=== PATIENT | male | born 1960 | race Caucasian/White ===

== ENCOUNTER 2017-12-06 13:15 | Emergency (ER) | payer OTHER ==
[2017-12-06 13:38] VITALS: BP 131/79
--- NOTE | 2017-12-06 14:05 | UC ---
Abdominal Pain Male HPI - HPI Summary HPI Summary: Pt c/o sudden onset of RUQ and RLQ p[ain that began this morning. Pt states he tried having a BM X 2 with success of BM on second try this morning. After BM pt states his abdominal pain was resolved. Pt had Ruen Y gastric bypass in january 2017. Pt states he has lost 200+ lbs since surgery. Pt states he did not eat a large meal in last 24 hours or today. Pt states he had "difficult time " with bowel movement - History of Current Complaint Chief Complaint: UCAbdominalPain Stated Complaint: ABDOMINAL RIGHT SIDE PAIN Time Seen by Provider: 12/06/17 13:31 Hx Obtained From: Patient Onset/Duration: Sudden Onset, Lasting Hours, Resolved Timing: Constant Severity Initially: Moderate Severity Currently: None Pain Intensity: 0 Location: Discrete At: RUQ, Discrete At: RLQ Radiates: No Character: Colicy, Cramping, Sharp Aggravating Factor(s): Nothing Alleviating Factor(s): Other - BM Associated Signs And Symptoms: Positive: Constipation - Risk Factors Testicular Torsion: Negative Cardiac Risk Factors: Negative - Allergies/Home Medications Allergies/Adverse Reactions: Allergies Allergy/AdvReac Type Severity Reaction Status Date / Time Penicillins Allergy Unknown Verified 12/06/17 13:31 Reaction Details Home Medications: Home Medications Blood Thinner DAILY 12/06/17 [History] Cholecalciferol TAB* [Vitamin D TAB*] 1,000 unit PO DAILY 12/06/17 [History Confirmed 12/06/17] Cyanocobalamin TAB* [Vitamin B12 TAB*] 500 mcg PO DAILY 12/06/17 [History Confirmed 12/06/17] Heartburn Medication DAILY 12/06/17 [History] Multivitamin [Multivitamins] 1 cap PO DAILY 12/06/17 [History Confirmed 12/06/17 ] Tamsulosin CAP* [Flomax CAP*] 0.4 mg PO DAILY 12/06/17 [History Confirmed ] PMH/Surg Hx/FS Hx/Imm Hx Previously Healthy: Yes GI/ History: Other - enlarged prostate Other GI/ History: enlarged prostate - Surgical History Surgical History: Yes Surgery Procedure, Year, and Place: dental surgery. left foot surgery/h/o fx. gastric bipass - Family History Known Family History: Positive: Cardiac Disease - Social History Occupation: Employed Full-time Lives: With Family Alcohol Use: Rare Substance Use Type: None Smoking Status (MU): Former Smoker Have You Smoked in the Last Year: No When Did the Patient Quit Smoking/Using Tobacco: 15 years Review of Systems Constitutional: Negative Skin: Negative Eyes: Negative ENT: Negative Respiratory: Negative Cardiovascular: Negative Gastrointestinal: Abdominal Pain Genitourinary: Negative Motor: Negative Neurovascular: Negative Musculoskeletal: Negative Neurological: Negative Psychological: Negative Is Patient Immunocompromised?: No All Other Systems Reviewed And Are Negative: Yes Physical Exam Triage Information Reviewed: Yes Appearance: Well-Appearing Vital Signs: Initial Vital Signs Temp 98.1 F 12/06/17 13:34 Pulse 67 12/06/17 13:34 Resp 23 12/06/17 13:34 BP 131/79 12/06/17 13:34 Pulse Ox 99 12/06/17 13:34 Vital Signs Reviewed: Yes Eye Exam: Normal ENT: Positive: Hearing grossly normal Dental Exam: Normal Neck exam: Normal Respiratory Exam: Normal Respiratory: Positive: No respiratory distress Cardiovascular Exam: Normal Abdominal Exam: Normal Abdomen Description: Positive: Nontender, Soft Bowel Sounds: Positive: Present Musculoskeletal Exam: Normal Neurological Exam: Normal Psychological Exam: Normal Skin Exam: Normal Abd Pain Male Course/Dx - Differential Dx/Clinical Impression Differential Diagnosis/HQI/PQRI: Constipation, Other Provider Diagnoses: abdominal pain. constipation Discharge - Sign-Out/Discharge Documenting (check all that apply): Patient Departure - Discharge Plan Condition: Stable Disposition: HOME Patient Education Materials: Acute Abdominal Pain (ED), Abdominal Pain (ED) Referrals: Mary Kay Bangura MD [Primary Care Provider] - If Needed - Billing Disposition and Condition Condition: STABLE Disposition: Home
== END 2017-12-06 14:14 | disposition home or self-care (01) ==
LOC: UCCORT 13:15
DX: K59.00 Constipation, unspecified (principal); Z88.0 Allergy status to penicillin; N40.0 Benign prostatic hyperplasia without lower urinary tract symptoms; Z87.891 Personal history of nicotine dependence
CPT/HCPCS: 99211; G0463

== ENCOUNTER 2018-02-17 07:44 | Emergency (ER) | payer OTHER ==
--- OUTSIDE RECORDS SUMMARY | 2018-02-17 07:53 | XMS REPORT ---
:1960 External Reference #:[id number] Author Organization [facility] Address [address], [address] [place] [address] Phone [phone] Care Team Providers Name Role Phone Oswald Kwok MD Care Team Information Flag Football Coach Unavailable Mary Kay Bangura MD Primary Care Physician Unavailable Payers Type Date Identification Numbers Payment Provider Subscriber Commercial Policy Number: [id number] Lifetime Benefit Solution Pavel Rodrigues Group Number: [id number] [address] [address] PayID: [place] [address] Problems Date Description Provider Status Onset: 01/09/2018 Chronic nonalcoholic liver Khris Iqbal DO Active disease Onset: 01/09/2018 Anemia Khris Iqbal DO Active Onset: 09/27/2017 Raised prostate specific antigen Edison Lee M.D. Active Onset: 09/14/2017 Morbid obesity Dallas Parker M.D., Active FACC Onset: 09/14/2017 Orthostatic hypotension Dallas Parker M.D., Active FACC Onset: 09/14/2017 Syncope and collapse Dallas Parker M.D., Active FACC Onset: 08/09/2017 Screening for malignant neoplasm Edison Lee M.D. Active of prostate Onset: 08/09/2017 Nocturia Edison Lee M.D. Active Onset: 07/12/2017 Benign prostatic hypertrophy with Edison Lee M.D. Active outflow obstruction Onset: 11/20/2010 Peripheral venous insufficiency Jerel Miles MD, KEANU Active Onset: 11/20/2010 Fracture therapy follow-up Jerel Miles MD, KEANU Active Onset: 11/20/2010 Pes planus Jerel Miles MD, KEANU Active Onset: 11/20/2010 Arthralgia of the ankle and/or Jerel Miles MD, KEANU Active foot Family History Date Family Member(s) Problem(s) Comments : (age 50 Years) Father due to [place] Father Heart Disease : (age 88 Years) Mother due to Unknown Causes Mother Unknown Social History Type Date Description Comments Marital Status Lives With Lives With Children Diet Patient follows no dietary Had gastric bypass in restrictions January 2017 Occupation Postal Delivery Officer Work Status Currently Working ADL's/IADL's Independent with all ADL's Cigarette Use Quit ETOH Use Rarely consumes alcohol Smoking Patient is a former smoker Recreational Drug Use Denies Drug Use Daily Caffeine Consumes on average 2 cups of regular coffee per day Allergies, Adverse Reactions, Alerts Date Description Reaction Status Severity Comments 11/05/2008 Penicillins unknown reaction active Medications Medication Date Status Form Strength Qnty SIG Indications Ordering Provider Cipro Hx Tablets 500mg 1tabs 1 tab by Shireen Lee - mouth once Edison in office [place] 018 for rprocedure Myrbetriq Active Tablets 25mg 30tabs 1 by mouth R35.1 Rosa 018 ER 24HR every day Olive Hogan Midodrine HCL Active Tablets 10mg 60tabs 1 tab by I95.1 Elena 018 mouth twice Dallas M., a day Olive, [facility] R55 Multi For Him Active Tablets 1 by mouth Unknown 50+ every day Omeprazole Active Capsules DR 20mg 1 by mouth Unknown every day Tamsulosin HCL Active Capsules 0.4m 1 by mouth Unknown g every day at bedtime Flintstones Active Chewtabs 2 tab by Unknown Gummies mouth every day Calcium Active Tablets 315- 1 by mouth Unknown Citrate-Vitamin 200m every day D g-Un it [id number] Active Chewtabs 1mg 1 tab by Unknown mouth every day wc Cipro 09/08/2017 Hx Tablets 500m 6tab 1 tab by Rosa, g s mouth twice a Mahmoud, day, start M.D. one day before procedure Miralax 09/08/2017 - Hx Packet 3350 1uni 1 teaspoon Rosa, 09/27/2017 NF ts twice daily Shardamoharrison, , 2 days M.D. prior to procedure Levaquin 07/14/2017 Hx Tablets 500m 7tab 1 tab by Rosa, g s mouth every Mahmoud, day M.D. Flomax 07/12/2017 - Hx Capsules 0.4m 90ca 1 by mouth Rosa, 09/06/2017 g ps every day Olive Hogan Hydrocodone/Apap Hx Tablets 5-50 1 tab po q4h Unknown 0mg prn Nexium - Hx Capsules DR 40mg 60ca 1 po qd Hal Guo 07/12/2017 ps MD David Metoprolol Hx Tablets 25mg 1 po bid Unknown Tartrate Metoprolol - Hx Tablets 25mg 2 tab by I95. Unknown Tartrate 08/01/2017 mouth twice 1 daily R55 Vital Signs Date Vital Result Comment 01/30/2018 BP Systolic 138 mmHg BP Diastolic 84 mmHg Body Temperature 98.5 F Heart Rate 63 /min Respiratory Rate 16 /min Weight 326.12 lb O2 % BldC Oximetry 97 % Pain Level 0 01/16/2018 BP Systolic 119 mmHg BP Diastolic 74 mmHg Body Temperature 97.0 F Heart Rate 61 /min Weight 332.38 lb O2 % BldC Oximetry 98 % Pain Level 0 01/09/2018 BP Systolic 109 mmHg BP Diastolic 63 mmHg Body Temperature 96.5 F Heart Rate 58 /min Weight 326.38 lb O2 % BldC Oximetry 97 % Pain Level 0 12/08/2017 BP Systolic 148 mmHg BP Diastolic 93 mmHg Body Temperature 97.3 F Heart Rate 59 /min Respiratory Rate 17 /min Height 79 inches 6'7" [place] body weight in kilograms 100 O2 % BldC Oximetry 96 % Pain Level 0 10/04/2017 BP Systolic 111 mmHg BP Diastolic 70 mmHg Body Temperature 98.7 F Heart Rate 68 /min Respiratory Rate 18 /min O2 % BldC Oximetry 94 % Pain Level 0 09/27/2017 BP Systolic 131 mmHg BP Diastolic 88 mmHg Heart Rate 73 /min Respiratory Rate 18 /min 09/27/2017 BP Systolic 147 mmHg BP Diastolic 88 mmHg Body Temperature 98.6 F Heart Rate 67 /min Respiratory Rate 18 /min Height 79 inches 6'7" Weight 340.00 lb BMI (Body Mass Index) 38.3 kg/m2 BSA (Body Surface Area) 2.86 m2 [place] body weight in kilograms 100 O2 % BldC Oximetry 96 % Pain Level 0 09/14/2017 BP Systolic Sitting Left Arm 115 mmHg BP Diastolic Sitting Left Arm 68 mmHg Heart Rate 76 /min Respiratory Rate 16 /min Height 79 inches 6'7" Weight 342.00 lb BMI (Body Mass Index) 38.5 kg/m2 BSA (Body Surface Area) 2.86 m2 [place] body weight in kilograms 100 09/06/2017 BP Systolic 120 mmHg BP Diastolic 78 mmHg Body Temperature 98.6 F Heart Rate 64 /min Respiratory Rate 18 /min Height 79 inches 6'7" Weight 340.00 lb BMI (Body Mass Index) 38.3 kg/m2 BSA (Body Surface Area) 2.86 m2 [place] body weight in kilograms 100 O2 % BldC Oximetry 97 % Pain Level 0 08/09/2017 BP Systolic 145 mmHg BP Diastolic 85 mmHg Body Temperature 98.2 F Heart Rate 74 /min Respiratory Rate 16 /min Height 79 inches 6'7" Weight 351.38 lb BMI (Body Mass Index) 39.6 kg/m2 BSA (Body Surface Area) 2.90 m2 [place] body weight in kilograms 100 O2 % BldC Oximetry 94 % Pain Level 1 Feels like he is not emptying 08/01/2017 BP Systolic Sitting Left Arm 102 mmHg Standing 88/58 BP Diastolic Sitting Left Arm 68 mmHg Standing 88/58 Heart Rate 72 /min Respiratory Rate 16 /min Height 79 inches 6'7" Weight 350.00 lb 330 per pt, has work boots on BMI (Body Mass Index) 39.4 kg/m2 BSA (Body Surface Area) 2.89 m2 [place] body weight in kilograms 100 07/12/2017 BP Systolic 130 mmHg BP Diastolic 85 mmHg Body Temperature 98.6 F Heart Rate 79 /min Respiratory Rate 16 /min Height 79 inches 6'7" Weight 349.38 lb BMI (Body Mass Index) 39.4 kg/m2 BSA (Body Surface Area) 2.89 m2 [place] body weight in kilograms 100 O2 % BldC Oximetry 95 % Pain Level 8 unable to urinate just dribbles 02/22/2011 Height 79 inches 6'7" Weight 373.00 lb BMI (Body Mass Index) 42.0 kg/m2 06/16/2009 Body Temperature 98.2 F Heart Rate 73 /min Respiratory Rate 20 /min Height 79 inches 6'7" Weight 315.00 lb BMI (Body Mass Index) 35.5 kg/m2 11/07/2008 Height 79 inches 6'7" Weight 330.00 lb BMI (Body Mass Index) 37.2 kg/m2 11/05/2008 Height 72 inches 6'0" Results Test Date Test Result H/L Range Note CBC W/Automated Diff 01/09/2018 White Blood Count 6.3 K/uL 3.4-10.5 1 Red Blood Count 4.64 M/uL 4.20-5.80 1 Hemoglobin 13.6 gm/dL 12.8-17.0 1 Hematocrit 40.0 % 38.0-48.0 1 Mean Cell Volume 86.2 fl 80.0-96.0 1 Mean Corpuscular HGB 29.3 pg 27.0-33.0 1 Mean Corpuscular HGB Conc 34.0 g/dL 31.7-36.0 1 Platelet Count 157 K/uL 155-360 1 Red Cell Distri Width SD 41.4 fl 36-51 1 Red Cell Distri Width %CV 13.5 % 11.6-15.8 1 Mean Platelet Volume 11.8 fL High 6.6-10.6 1 Neut% 62.5 % 33.0-73.0 1 Lymph % 28.1 % 20.0-42.0 1 [place] % 7.5 % 0.0-10.0 1 Eo% 1.6 % 0.0-6.6 1 Bas% 0.3 % 0.0-1.1 1 Neut# 3.93 K/uL 1.8-7.0 1 Lymph # 1.77 K/uL 1.0-4.0 1 [place] # 0.47 K/uL 0.0-0.8 1 Eos # 0.10 K/uL 0.0-0.5 1 Baso # 0.02 K/uL 0.0-0.1 1 Comprehensive Metabolic Panel 01/09/2018 Glucose 120 mg/dL High 74-106 1 BUN 21 mg/dL High 7-18 1 Creatinine 0.8 mg/dL 0.6-1.3 1 Glom Filtration Rate, Estimate >60 mL/min >60 1 If >60 mL/min >60 1, 2 BUN/Creat 26.2 ratio 1 Sodium 141 mmol/L 136-145 1 Potassium 4.1 mmol/L 3.5-5.1 1 Chloride 106 mmol/L 98-107 1 Carbon Dioxide 29 mmol/L 21-32 1 Anion Gap 6 mEq/L Low 8-16 1 Calcium 9.1 mg/dL 8.5-10.1 1 Total Protein 7.4 g/dL 6.4-8.2 1 Albumin 3.8 g/dL 3.4-5.0 1 Globulin 3.6 g/dL 1.9-4.3 1 Alb/Glob 1.1 ratio 1 Bilirubin,Total 0.6 mg/dL 0.2-1.0 1 Sgot/Ast 17 U/L 15-37 1 SGPT/Alt 22 U/L 12-78 1 Alkaline Phosphatase 93 U/L 45-117 1 Laboratory test finding 01/09/2018 Ferritin 494 ng/mL High 26-388 1 Vitamin B12 And Folate 01/09/2018 Vitamin B12 768 pg/mL 193-986 1 Folic Acid 13.3 ng/mL 3.1-17.5 1 Iron-Tibc-%Sat 01/09/2018 Serum Iron 105 g/dL 65-175 1 Total Iron Binding Capacity 288 g/dL 250-450 1 Transferrin %Saturation 36 % 12-57 1 Laboratory test finding 09/06/2017 Prostate Specific 10.60 ng/mL < 4.0 3 , 4 Antigen Laboratory test finding 08/09/2017 Prostate Specific 7.22 ng/mL < 4.0 5 , 6 Antigen Ua RFX Micro & Culture II 08/09/2017 Urine Color YELLOW Yellow 5 Urine Clarity CLEAR Clear 5 Urine Glucose - Dipstick NEGATIVE mg/dL Negative 5 Urine Bilirubin - Dipstick NEGATIVE Negative 5 Urine Ketone NEGATIVE mg/dL Negative 5 Urine Specific [place] <=1.005 Low 1.010-1.030 5 Urine Blood NEGATIVE Negative 5 Urine PH 6.0 Low 6.5-7.5 5 Urine Protein - Dipstick NEGATIVE mg/dL Negative 5 Urine Urobilinogen - Dipstick 0.2 E.U./dL 0.2-1.0 5 Urine Nitrite - Dipstick NEGATIVE Negative 5 Urine Leuk Esterase NEGATIVE Negative 5 Source: URINE, CLEAN CAT <SEE NOTE> 5, 7 Laboratory test finding 07/18/2017 Troponin-I < 0.015 ng/mL 8, 9 CBS W/Automated Diff 07/18/2017 White Blood Count 7.3 K/uL 3.4-10.5 8 Red Blood Count 4.64 M/uL 4.20-5.80 8 Hemoglobin 13.1 gm/dL 12.8-17.0 8 Hematocrit 39.6 % 38.0-48.0 8 Mean Cell Volume 85.3 fl 80.0-96.0 8 Mean Corpuscular HGB 28.2 pg 27.0-33.0 8 Mean Corpuscular HGB Conc 33.1 g/dL 31.7-36.0 8 Platelet Count 165 K/uL 155-360 8 Red Cell Distri Width SD 42.1 fl 36-51 8 Red Cell Distri Width %CV 13.9 % 11.6-15.8 8 Mean Platelet Volume 10.6 fL 6.6-10.6 8 Neut% 72.9 % 33.0-73.0 8 Lymph % 19.6 % Low 20.0-42.0 8 [place] % 6.1 % 0.0-10.0 8 Eo% 1.0 % 0.0-6.6 8 Bas% 0.4 % 0.0-1.1 8 Neut# 5.29 K/uL 1.8-7.0 8 Lymph # 1.42 K/uL 1.0-4.0 8 [place] # 0.44 K/uL 0.0-0.8 8 Eos # 0.07 K/uL 0.0-0.5 8 Baso # 0.03 K/uL 0.0-0.1 8 Basic Metabolic Panel 07/18/2017 Glucose 165 mg/dL High 74-106 8 BUN 14 mg/dL 7-18 8 Creatinine 1.0 mg/dL 0.6-1.3 8 Glom Filtration Rate, Estimate >60 mL/min >60 8 If >60 mL/min >60 8, 10 BUN/Creat 14.0 ratio 8 Sodium 140 mmol/L 136-145 8 Potassium 3.9 mmol/L 3.5-5.1 8 Chloride 103 mmol/L 98-107 8 Carbon Dioxide 28 mmol/L 21-32 8 Anion Gap 9 mEq/L 8-16 8 Calcium 9.0 mg/dL 8.5-10.1 8 Laboratory test finding 07/18/2017 Troponin-I < 0.015 ng/mL 8, 11 Blood Culture 07/17/2017 Blood Culture Aerobic NO GROWTH: FINAL 8, 12 <SEE NOTE> Blood Culture Anaerobic NO GROWTH: FINAL <SEE NOTE> 8, 13 Blood Culture 07/17/2017 Blood Culture Aerobic NO GROWTH: FINAL <SEE NOTE> 8, 14 Blood Culture Anaerobic NO GROWTH: FINAL <SEE NOTE> 8, 15 Aot Request 07/17/2017 Aot Request Test(s) added 8, 16 Tests to be added: pro bnp 8 Ua RFX Micro & Culture II 07/17/2017 Urine Color STRAW Yellow 8 Urine Clarity CLEAR Clear 8 Urine Glucose - Dipstick NEGATIVE mg/dL Negative 8 Urine Bilirubin - Dipstick NEGATIVE Negative 8 Urine Ketone NEGATIVE mg/dL Negative 8 Urine Specific [place] <=1.005 Low 1.010-1.030 8 Urine Blood NEGATIVE Negative 8 Urine PH 6.0 Low 6.5-7.5 8 Urine Protein - Dipstick NEGATIVE mg/dL Negative 8 Urine Urobilinogen - Dipstick 0.2 E.U./dL 0.2-1.0 8 Urine Nitrite - Dipstick NEGATIVE Negative 8 Urine Leuk Esterase NEGATIVE Negative 8 Source: URINE, CLEAN CAT <SEE NOTE> 8, 17 Ua RFX Micro & Culture II 07/12/2017 Urine Color YELLOW Yellow Urine Clarity CLOUDY Clear Urine Glucose - Dipstick NEGATIVE mg/dL Negative Urine Bilirubin - Dipstick NEGATIVE Negative Urine Ketone NEGATIVE mg/dL Negative Urine Specific [place] 1.025 1.010-1.030 Urine Blood NEGATIVE Negative Urine PH 5.5 Low 6.5-7.5 Urine Protein - Dipstick TRACE mg/dL Negative Urine Urobilinogen - Dipstick 0.2 E.U./dL 0.2-1.0 Urine Nitrite - Dipstick POSITIVE Negative Urine Leuk Esterase NEGATIVE Negative Urine RBC 2-5 rbc/hpf 0-2 Urine WBC 20-30 wbc/hpf High 0-7 Urine Epithelial Cells FEW /lpf None Seen Urine Calcium Oxalate Crystals MANY None Seen Urine Bacteria MODERATE None Seen Culture If Indicated 07/12/2017 Culture If Indicated CULTURE TO FOLLO <SEE 18 Comment Comment NOTE> Urine Culture 07/12/2017 Urine Culture KLEBSIELLA PNEUM <SEE 19 NOTE> Quantity > 100,000 CFU/mL 20 Ast-GN67 07/12/2017 Nitrofurantoin 64 Trimethoprim/Sulfamethoxazole <=20 Ampicillin >=32 Cefazolin <=4 Ampicillin/Sulbactam 8 Ciprofloxacin <=0.25 Piperacillin/Tazobactam <=4 Ceftazidime <=1 Ceftriaxone <=1 Cefepime <=1 Levofloxacin <=0.12 Imipenem <=0.25 Gentamicin <=1 Tobramycin <=1 Laboratory test finding 06/16/2009 Cyst, Cutaneous See Note 21 1 D64.9 2 Note: Persistent reduction for 3 months or more in an eGFR <60 mL/min/1.73 m2 defines CKD. Patients with eGFR values >/=60 mL/min/1.73 m2 may also have CKD if evidence of persistent proteinuria is present. The original MDRD equation for estimated GFR is not valid for patients less than 18 years of age. Additional information may be found at www.kdoqi.org. 3 R97.20 4 THIS ASSAY IS NOT INTENDED A CANCER SCREENING TEST The concentration of PSA in a given specimen, determined with assays from different manufacturers, can vary due to differences in assay methods and reagent specificity. Values obtained from different assay methods cannot be used interchangeably. Method: [employer] [place] Chemiluminescent immunoassay. 5 Z12.5 R35.1 6 THIS ASSAY IS NOT INTENDED A CANCER SCREENING TEST The concentration of PSA in a given specimen, determined with assays from different manufacturers, can vary due to differences in assay methods and reagent specificity. Values obtained from different assay methods cannot be used interchangeably. Method: [employer] [place] Chemiluminescent immunoassay. 7 URINE, CLEAN CATCH 8 SYNCOPE 9 0.0 - 0.045 ng/mL: Normal 0.046 - 0.5 ng/mL: Suggestive 0.6 - 1.5 ng/mL: Consistent 10 Note: Persistent reduction for 3 months or more in an eGFR <60 mL/min/1.73 m2 defines CKD. Patients with eGFR values >/=60 mL/min/1.73 m2 may also have CKD if evidence of persistent proteinuria is present. The original MDRD equation for estimated GFR is not valid for patients less than 18 years of age. Additional information may be found at www.kdoqi.org. 11 0.0 - 0.045 ng/mL: Normal 0.046 - 0.5 ng/mL: Suggestive 0.6 - 1.5 ng/mL: Consistent 12 NO GROWTH: FINAL REPORT 13 NO GROWTH: FINAL REPORT 14 NO GROWTH: FINAL REPORT 15 NO GROWTH: FINAL REPORT 16 Tests: pro bnp Instructions: 17 URINE, CLEAN CATCH 18 CULTURE TO FOLLOW 19 KLEBSIELLA PNEUMONIAE 20 > 100,000 CFU/mL 21 OPERATION/PROCEDURE Excision DIAGNOSIS: "NECK CYST": EPIDERMOID INCLUSION CYST. WYS/clf GROSS The specimen is received in a single container additionally labeled, "NECK CYST". This contains a largely intact spherical yellow-white growth measuring 2.9 x 2.9 x 2.5 cm. in overall dimensions. The unilocular cyst is filled with cheesy white curd- like central material. I do not see any papillations or central growths. This is submitted in claim representative section within a single cassette. Tissue remaining. WS/clf MICROSCOPIC Sections show a thin walled cystic structure lined by squamous epithelium with a granular layer and central keratinous debris. PRE OPERATIVE DIAGNOSIS Neck cyst REVIEW CODE CODE: I ALLEGRA López MD 06/18/09 Procedures Date CPT Code Description Status 01/30/2018 84465 Cystoscopy Completed 12/08/2017 38651 Measurement Post Voiding Residual Urine By Completed Ultrasound,Non-Imaging 12/08/2017 47305 complex uroflowmetry electronic Completed 09/27/2017 29475 Ultrasound Guide For Needle Biopsy Completed 09/27/2017 34117 Ultrasound Transrectal Completed 09/27/2017 72674 Biopsy Prostate Needle Or Punch Completed 09/27/2017 27096 Measurement Post Voiding Residual Urine By Completed Ultrasound,Non-Imaging 08/09/2017 71070 Measurement Post Voiding Residual Urine By Completed Ultrasound,Non-Imaging 08/09/2017 93160 complex uroflowmetry electronic Completed 08/01/2017 69111 EKG-Tracing And Report Completed 07/18/2017 71329 Echocardiogram Complete Completed 07/12/2017 22094 Measurement Post Voiding Residual Urine By Completed Ultrasound,Non-Imaging 08/06/2013 75959 Myocardial Imaging Tomographic Multiple Study AT Rest Completed Or Stress 08/06/2013 78746 Stress Test Physician Super Only Completed 08/06/2013 05924 Stress Test Physician Super Only Completed 08/06/2013 41737 Stress Test Interpre And Report Only Completed 11/20/2010 74593 Radiology, Foot, Complete-3 Views Completed 11/06/2009 33617 Radiology, Heel 2 Views Completed 06/16/2009 67269 Exc.Tumor Soft Tiss Neck Or Thyro Completed 03/27/2009 34475 Radiology, Foot, Complete-3 Views Completed 01/30/2009 90898 Radiology, Heel 2 Views Completed 01/02/2009 89005 Radiology, Foot, Complete-3 Views Completed 12/05/2008 03944 Radiology, Foot, Complete-3 Views Completed 11/07/2008 08342 FX Metatarsal-Closed W/O Completed Encounters Type Date Location Provider CPT E/M Dx Office Visit 01/30/2018 8:45a Urology Edison Lee M.D. 86204 N40.1 Office Visit 01/16/2018 8:45a [place] [address] D64.9 K76.0 Office Visit 01/09/2018 10:00a [place] [address] D64.9 N40.1 K76.0 Office Visit 12/08/2017 9:00a Urology Edison Lee M.D. 74017 N40.1 R97.20 R35.1 Office Visit 10/04/2017 10:15a Urology Edison Lee M.D. 60200 N40.1 R97.20 R35.1 Office Visit 09/14/2017 1:40p Cardiology Office Dallas Parker M.D., 78222 R55 [facility] I95.1 E66.01 Office Visit 09/06/2017 9:30a Urology Edison Lee M.D. 73071 N40.1 R35.1 Z12.5 Office Visit 08/09/2017 9:30a Urology Edison Lee M.D. 23411 N40.1 R35.1 Z12.5 Office Visit 08/01/2017 2:20p [place] [address] R55 I95.1 E66.01 Office Visit 07/12/2017 11:00a Urology Edison Lee M.D. 74182 N40.1 Office Visit 02/22/2011 9:30a [place], [address] 734 FACS 459.81 Office Visit 11/20/2010 9:15a [place], [address] 719.47 FACS 734 V67.4 459.81 Office Visit 11/06/2009 1:15p [place], [address] 719.7 FACS V67.4 Office Visit 06/16/2009 8:30a [place] [address] 706.2 Office Visit 03/27/2009 3:00p [place] [address] V67.4 Plan of Care Future Appointment(s):03/01/2018 10:00 am - Edison Lee M.D. at Operating Room07/10/2018 8:30 am - Oncology Nurse at Oncology Toeocn9907/17/2018 8:30 am - Khris Iqbal DO at Oncology [id number]/12/2018 8:30 am - Edison Lee M.D. at Byucsfo60/08/2018 - Edison Lee M.D.N40.1 Benign prostatic hyperplasia with lower urinary tract sympComments:Patient with BPH and prostate about 50 g. Discuss options including prostate thermotherapy in the office or the more aggressive and invasive TURP. Patient would like to have a TURP. Discussed with the patient the risks of retrograde ejaculation urinary incontinence and the need for catheter for several days. Patient is agreeable to proceed.
--- NOTE | 2018-02-17 08:33 | UC ---
Dizzy HPI HPI Summary: The patient is a 57-year-old male who person's for evaluation of a spell he had this morning while driving. 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 He was driving and had the acute onset of blurred vision. [place] like things were coning down. [place] as though he might pass out. His fingers became numb and tingly. He pulled off the road. After 5 or 6 minutes he felt markedly improved and came here. He denies any headache. Denies any chest pain, shortness of breath, or palpitations. He ate a piece of toast about 4:30 this morning. He states that about 6 months ago he had a syncopal episode. He had a UTI and apparently developed hypotension and fell. He broke 3 ribs And was hospitalized. He currently feels back to normal except for some mild tingling of his fingertips. - History Of Current Complaint Chief Complaint: UCGeneralIllness Stated Complaint: DIZZY Time Seen by Provider: 02/17/18 08:19 Hx Obtained From: Patient Onset/Duration: Sudden Onset, Lasting Minutes - 5 Timing: Constant Severity Initially: Severe Severity Currently: None Pain Intensity: 0 Pain Scale Used: 0-10 Numeric Character: Lightheaded Aggravating Factor(s): Nothing Alleviating Factor(s): Nothing Associated Signs And Symptoms: Positive: Visual Changes. Negative: Nausea, Vomiting, Diaphoresis, Tinnitus, Chest Pain, SOB, Palpitations, Unsteady Gait, Decreased Oral Intake, Change In Medication, Change In Diet, OTC Medications - Allergies/Home Medications Allergies/Adverse Reactions: Allergies Allergy/AdvReac Type Severity Reaction Status Date / Time Penicillins Allergy Unknown Verified 02/17/18 07:52 Reaction Details Home Medications: Home Medications Midodrine HCl 10 mg PO DAILY 02/17/18 [History Confirmed 02/17/18] Mirabegron (NF) [Myrbetriq (NF)] 25 mg PO DAILY 02/17/18 [History Confirmed ] Omeprazole CAP* [Prilosec CAP* 20 MG] 20 mg PO DAILY 02/17/18 [History Confirmed 02/17/18] PMH/Surg Hx/FS Hx/Imm Hx Previously Healthy: Yes - gastric bypass Endocrine History: Dyslipidemia Cardiovascular History: Hypertension - Surgical History Surgical History: Yes Surgery Procedure, Year, and Place: dental surgery. left foot surgery/h/o fx. gastric bipass - Family History Known Family History: Positive: Cardiac Disease Negative: Hypertension, Diabetes - Social History Alcohol Use: Rare Substance Use Type: None Smoking Status (MU): Former Smoker Have You Smoked in the Last Year: No When Did the Patient Quit Smoking/Using Tobacco: 15 years Review of Systems Constitutional: Negative Skin: Negative Eyes: Blurred Vision ENT: Negative Respiratory: Negative Cardiovascular: Negative Gastrointestinal: Negative Genitourinary: Negative Motor: Negative Neurovascular: Negative Musculoskeletal: Negative Neurological: Negative Psychological: Negative All Other Systems Reviewed And Are Negative: Yes Physical Exam Triage Information Reviewed: Yes Appearance: Well-Appearing, No Pain Distress, Well-Nourished Vital Signs: Initial Vital Signs Temp 97.7 F 02/17/18 07:55 Pulse 64 02/17/18 07:55 Resp 18 02/17/18 07:55 BP 141/73 02/17/18 07:55 Pulse Ox 98 02/17/18 07:55 Vital Signs Reviewed: Yes Eyes: Positive: Conjunctiva Clear ENT: Positive: TMs normal, Uvula midline. Negative: Hearing grossly normal, Nasal congestion, Nasal drainage, Tonsillar swelling, Tonsillar exudate, Trismus , Muffled voice, Hoarse voice, Sinus tenderness Neck: Positive: Supple, Nontender, No Lymphadenopathy, Other: - no bruits Respiratory: Positive: Lungs clear, Normal breath sounds, No respiratory distress, No accessory muscle use Cardiovascular: Positive: RRR, No Murmur Musculoskeletal: Positive: ROM Intact, No Edema Neurological: Positive: Alert, Muscle Tone Normal, Other: - cn2-12 intact, strength 5/5, dtrs symmetric Psychological Exam: Normal Skin Exam: Normal Diagnostics - Laboratory Diagnostic Studies Completed/Ordered: UA -neg. BS 115. orthostatic VS- negative Dizzy Course/Dx - Course Course Of Treatment: advise pt go to [facility] for further evaluation. D/W July Palma NP - Differential Dx/Diagnosis Provider Diagnoses: blurred vision. ? near syncope Discharge - Sign-Out/Discharge Documenting (check all that apply): Patient Departure All imaging exams completed and their final reports reviewed: No Studies - Discharge Plan Condition: Stable Disposition: [facility] Referrals: Mary Kay Bangura MD [Primary Care Provider] - As Soon As Possible Additional Instructions: I suggest you go directly to the [facility] I spoke to Hina Palma [employer] They are expecting you - Billing Disposition and Condition Condition: STABLE Disposition: Trans Higher Lvl of Care Fac
[2018-02-17 08:53] VITALS: BP 130/79
== END 2018-02-17 09:25 | disposition short-term general hospital (02) ==
LOC: UCCORT 07:44
DX: R55 Syncope and collapse (principal); H53.8 Other visual disturbances; I10 Essential (primary) hypertension; E78.5 Hyperlipidemia, unspecified; Z88.0 Allergy status to penicillin; Z98.84 Bariatric surgery status; Z87.891 Personal history of nicotine dependence
CPT/HCPCS: 81003; 99212; G0463